=== PATIENT | female | born 1990 | race Caucasian/White ===

== ENCOUNTER 2017-01-09 18:46 | Emergency (ER) | payer OTHER ==
[2017-01-09] MEDS ORDERED: LIDOCAINE VISCOUS 2% 15 ML UDC MM STA (19:25)
[2017-01-09] MEDS ORDERED: MAG HYDROX/AL HYDROX/SIMETH 30 ML UDC PO STA (19:25)
[2017-01-09] MEDS ORDERED: MAG HYDROX/AL HYDROX/SIMETH 30 ML UDC ONE (19:28)
[2017-01-09] MEDS ORDERED: LIDOCAINE VISCOUS 2% 15 ML UDC MM ONE (19:28)
[2017-01-09] MEDS ORDERED: HYDROcod/ACET 5/325 Prepack 6 PO STA (19:58)
[2017-01-09] MEDS ORDERED: HYDROcod/ACET 5/325 Prepack 6 PO ONE (20:04)
== END 2017-01-09 20:16 | disposition home or self-care (01) ==
DX: K52.9 Noninfective gastroenteritis and colitis, unspecified (principal)
CPT/HCPCS: 36415; 80053; 81003; 81025; 83690; 85025; 87339; 99283; 99284; A9270